=== PATIENT | female | born 1995 | race Two or more races ===

== ENCOUNTER 2019-08-11 21:05 | Emergency (ER) | payer BC, MEDICAID ==
--- NOTE | 2019-08-11 21:26 | EDM.PDOC ---
ED HPI GENERAL MEDICAL PROBLEM - General Chief Complaint: General Stated Complaint: FLU LIKE SYMPTOMS 8 MONTHS PREG Time Seen by Provider: 08/11/19 21:22 Source of Information: Reports: Patient History Limitations: Reports: No Limitations - History of Present Illness INITIAL COMMENTS - FREE TEXT/NARRATIVE: TRIAGE NOTE -- Pt states she started having flu like symptoms today with fever, chills, cough, and nausea. pt states she has also been having some bilaterally lower back pain. Pt is currently 8 months . pt took tylenol around 1500 As above. On my exam she denies nausea. She is taken nothing but Tylenol in an effort to moderate symptoms. There is a slight sore throat. No readily identified risk factors. 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 [No Known Home Meds] 08/11/19 [History] Social & Family History - Family History Family Medical History: Noncontributory - Tobacco Use Smoking Status *Q: Never Smoker Second Hand Smoke Exposure: No - Caffeine Use Caffeine Use: Reports: Tea - Recreational Drug Use Recreational Drug Use: No ED ROS GENERAL - Review of Systems Review Of Systems: Comprehensive ROS is negative, except as noted in HPI. ED EXAM, GENERAL - Physical Exam Exam: See Below Exam Limited By: No Limitations General Appearance: Alert, WD/WN Eye Exam: Bilateral Eye: EOMI, PERRL Ears: Normal External Exam Nose: Normal Inspection Throat/Mouth: Other (Mild posterior pharyngeal erythema no exudate no asymmetry) Head: Atraumatic, Normocephalic Neck: Normal Inspection, Supple, Non-Tender Respiratory/Chest: No Respiratory Distress, Lungs Clear, Normal Breath Sounds Cardiovascular: Tachycardia GI/Abdominal: Soft, Non-Tender, Other (Gravid) Back Exam: Normal Inspection Extremities: Normal Inspection Neurological: Alert, Oriented Psychiatric: Normal Affect Skin Exam: Warm, Dry Course - Vital Signs Last Recorded V/S: Last Vital Signs Temp 37.7 C 08/11/19 21:14 Pulse 120 H 08/11/19 21:14 Resp 18 08/11/19 21:14 BP 120/74 08/11/19 21:14 Pulse Ox 97 08/11/19 21:14 - Orders/Labs/Meds Orders: Active Orders 24 hr Category Date Time Status CULTURE STREP A CONFIRMATION [RM] Stat Lab 08/11/19 21:45 Results Rapid Strep w/culture conf [STREP SCRN A RAPID W CULT Lab 08/11/19 21:45 Results CONF] [RM] Stat Meds: Medications Discontinued Medications Generic Name Dose Route Start Last Admin Trade Name Everton PRN Reason Stop Dose Admin Sodium Chloride 1,000 mls @ 1,000 mls/hr 08/11/19 21:46 08/11/19 21:52 Normal Saline IV 08/11/19 22:45 1,000 mls/hr ONETIME ONE Administration - Re-Assessments/Exams Free Text/Narrative Re-Assessment/Exam: 08/11/19 23:09 Patient feels a bit better after IV fluids. She is negative for strep and flu. Discussed fully with her. See instructions. Departure - Departure Time of Disposition: 23:10 Disposition: Home, Self-Care 01 Condition: Good Clinical Impression: Flu-like symptoms, Third trimester - Discharge Information Referrals: Kandy Friedman MD [Primary Care Provider] - Forms: ED Department Discharge Additional Instructions: You have come to the ER tonight with flulike symptoms. You were negative for flu as well as strep. However there are other viruses that can cause the kind of discomfort you are experiencing. You received a liter of IV fluids. There was some improvement with this. I would suggest that you use stay on clear liquids for about 24 hours. Report this visit to your vest baster in the morning for any additional instructions and follow-up. Return to ER right away for any worsening of your condition, decreased urine output or any concerns at all. Sepsis Event Note - Evaluation Sepsis Screening Result: No Definite Risk - Focused Exam Vital Signs: Vital Signs Temp Pulse Resp BP Pulse Ox 08/11/19 21:14 37.7 C 120 H 18 120/74 97 Date Exam was Performed: 08/11/19 Time Exam was Performed: 23:09 - My Orders Last 24 Hours: My Active Orders 08/11/19 21:45 CULTURE STREP A CONFIRMATION [RM] Stat Rapid Strep w/culture conf [STREP SCRN A RAPID W CULT CONF] [RM] Stat - Assessment/Plan Last 24 Hours: My Active Orders 08/11/19 21:45 CULTURE STREP A CONFIRMATION [RM] Stat Rapid Strep w/culture conf [STREP SCRN A RAPID W CULT CONF] [RM] Stat
[2019-08-11] MEDS ORDERED: Sodium Chloride 0.9% 1,000 ML IV ONE (21:46)
== END 2019-08-11 23:21 | disposition home or self-care (01) ==
LOC: JD.ED 21:05
DX: O99.89 Other specified diseases and conditions complicating pregnancy, childbirth and the puerperium (principal); R50.9 Fever, unspecified; R05 Cough
CPT/HCPCS: 87081; 87430; 87804; 96360; 99283; J7030

== ENCOUNTER 2019-09-29 07:04 | Inpatient (IN) | payer OTHER, MEDICAID ==
[~2019-09-29 07:04] MED LIST: Bupivacaine 0.25% 10 ML SDV ONE
[2019-09-29] MEDS ORDERED: Nalbuphine 10 MG/ML Syringe IVPUSH PRN (07:16)
[2019-09-29] MEDS ORDERED: Sodium Chloride 0.9% 10 ML Syringe FLUSH PRN (07:16)
[2019-09-29] MEDS ORDERED: Ondansetron 4 MG/2 ML SDV IVPUSH PRN (07:16)
[2019-09-29] MEDS ORDERED: Misoprostol 25 MCG (1/4 of 100 MCG) Tab VAG PRN (07:16)
[2019-09-29] MEDS ORDERED: Misoprostol 25 MCG (1/4 of 100 MCG) Tab ONE (07:17)
--- NOTE | 2019-09-29 07:19 | PCM.LDHP ---
L&D History of Present Illness - General Date of Service: 09/29/19 Admit Problem/Dx: Patient Status Order with Admit Dx/Problem 09/29/19 07:16 Patient Status [ADT] Routine Admission Diagnosis/Problem Admission Diagnosis/Problem Abnormal quad screen Source of Information: Patient History Limitations: Reports: No Limitations - History of Present Illness Introduction:: Patient is a 24-year-old at 40-0/7 weeks gestation who presents for induction of labor for abnormal quad screen. This is shown an increased risk of neural tube defect. Subsequent MFM evaluation normal. Induction between 39- 40 weeks was recommended. Patient feeling well. No contractions recently. Getting good movement. 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 LMP (Approximate): Psychiatric History: Reports: Depression - Past Surgical History HEENT Surgical History: Reports: Myringotomy w Tube(s), Other (See Below) ( Stapedectomy) Social & Family History - Family History Family Medical History: Noncontributory - Tobacco Use Smoking Status *Q: Never Smoker - Caffeine Use Caffeine Use: Reports: Tea - Alcohol Use Alcohol Use History: No - Recreational Drug Use Recreational Drug Use: No H&P Review of Systems - Review of Systems: Review Of Systems: See Below General: Reports: No Symptoms Pulmonary: Reports: No Symptoms Cardiovascular: Reports: No Symptoms Gastrointestinal: Reports: No Symptoms Genitourinary: Reports: No Symptoms Musculoskeletal: Reports: No Symptoms Psychiatric: Reports: No Symptoms Neurological: Reports: No Symptoms L&D Exam - Exam Exam: See Below - OB Specific Contraction Intensity: Irritability Movement: Active Heart Tones: Present Heart Tones per Min: 130 Heart Rate (FHR) Variability: Moderate (6-25 bmp) Presentation: Vertex - Villanueva Score Villanueva Score Cervix Position: Midposition Villanueva Score Consistency: Soft Villanueva Score Effacement: 51-70% Villanueva Score Dilation: 1-2 cm Villanueva Score Infant's Station: -2 Villanueva Score Total: 7 - Exam General: Alert, Oriented, Cooperative Lungs: Clear to Auscultation, Normal Respiratory Effort Cardiovascular: Regular Rate, Regular Rhythm GI/Abdominal Exam: Soft, Non-Tender Genitourinary: Normal external exam Back Exam: Normal Inspection Extremities: Normal Inspection Skin: Warm, Dry, Intact - Patient Data Result Diagrams: 09/29/19 07:25 - Problem List (1) 40 weeks gestation of SNOMED Code(s): 04600245 ICD Code: Z3A.40 - 40 WEEKS GESTATION OF Status: Acute Current Visit: Yes (2) Abnormal quad screen SNOMED Code(s): 034014676, 216905484 ICD Code: O28.0 - ABNORMAL HEMATOLOG FINDING ON SCREENING OF MOTHER Status: Acute Current Visit: Yes Problem List Initiated/Reviewed/Updated: Yes Orders Last 24hrs: Active Orders 24 hr Category Date Time Status Patient Status [ADT] Routine ADT 09/29/19 07:16 Ordered Activity as Tolerated [RC] PFP Care 09/29/19 07:16 Ordered Communication Order [RC] ASDIRECTED Care 09/29/19 07:16 Ordered Communication Order [RC] ASDIRECTED Care 09/29/19 07:16 Ordered Communication Order [RC] ASDIRECTED Care 09/29/19 07:16 Ordered Heart Tones [RC] ASDIRECTED Care 09/29/19 07:17 Ordered Monitoring [RC] INTERMITTENT Care 09/29/19 07:16 Ordered Non Stress Test [RC] PER UNIT ROUTINE Care 09/29/19 07:16 Ordered Notify Provider [RC] ASDIRECTED Care 09/29/19 07:16 Ordered Notify Provider [RC] PRN Care 09/29/19 07:16 Ordered Peripheral IV Care [RC] . DIRECTED Care 09/29/19 07:17 Ordered Up ad Nicole [RC] ASDIRECTED Care 09/29/19 07:17 Ordered Vaginal Exam [RC] ASDIRECTED Care 09/29/19 07:16 Ordered Vital Signs [RC] ASDIRECTED Care 09/29/19 07:16 Ordered Regular Diet [DIET] Diet 09/29/19 Breakfast Ordered CBC W/O DIFF,HEMOGRAM [HEME] Routine Lab 09/29/19 07:16 Ordered RAPID PLASMA REAGIN,RPR [CHEM] Routine Lab 09/29/19 07:16 Ordered TYPE AND SCREEN [BBK] Routine Lab 09/29/19 07:16 Ordered Lactated Ringers [Ringers, Lactated] 1,000 ml Med 09/29/19 07:30 Ordered IV ASDIRECTED Nalbuphine [Nubain] Med 09/29/19 07:16 Ordered 10 mg IVPUSH Q2H PRN Ondansetron [Zofran] Med 09/29/19 07:16 Ordered 4 mg IVPUSH Q4H PRN Oxytocin/Lactated Ringers [Pitocin in LR 10 Units/1,000 Med 09/29/19 07:30 Ordered ML] 10 unit in 1,000 ml IV .CONTINUOUS Oxytocin/Lactated Ringers [Pitocin in LR 10 Units/1,000 Med 09/29/19 07:30 Ordered ML] 10 unit in 1,000 ml IV TITRATE Sodium Chloride 0.9% [Saline Flush] Med 09/29/19 07:16 Ordered 10 ml FLUSH ASDIRECTED PRN miSOPROStoL [Cytotec] Med 09/29/19 07:16 Ordered 25 mcg VAG Q4H PRN Electronic Heart Tones Ext w TOCO [WOMSER] Oth 09/29/19 07:16 Ordered Routine Electronic Heart Tones Internal [WOMSER] Per Unit Oth 09/29/19 07:16 Ordered Routine Medication Administration Instruction [OM.PC] Oth 09/29/19 07:30 Ordered ASDIRECTED Peripheral IV Insertion Adult [OM.PC] Routine Oth 09/29/19 07:16 Ordered Resuscitation Status Routine Resus Stat 09/29/19 07:16 Ordered Assessment/Plan Comment:: * Labs to be done * GBS negative, no need for antibiotics * Cytotec placed for IOL. Will transition to pitocin/Bryant bulb when able * Pain management per patient preference * Anticipate
[2019-09-29] MEDS ORDERED: Oxytocin/Lactated Ringers 10 UNIT/1,000 ML BAG IV SCH ×2 (07:30)
[2019-09-29] MEDS: Lactated Ringers 1,000 ML IV SCH ×4 (11:59→18:35)
[2019-09-29] MEDS ORDERED: Bupivacaine/fentaNYL/NS 100 ML Bag EPIDUR PRN (15:33)
[2019-09-29] MEDS ORDERED: diphenhydrAMINE 50 MG/ML SDV IVPUSH PRN (15:33)
[2019-09-29] MEDS ORDERED: ePHEDrine 50 MG/ML SDV IVPUSH PRN (15:33)
[2019-09-29] MEDS ORDERED: fentaNYL 100 MCG/2 ML SDV EPIDUR PRN (15:33)
--- NOTE | 2019-09-29 16:23 | PCM.PREANE ---
Preanesthetic Assessment - Anesthesia/Transfusion/Family Hx Anesthesia History: Prior Anesthesia Without Reaction Family History of Anesthesia Reaction: No Transfusion History: No Prior Transfusion(s) - Review of Systems General: No Symptoms Pulmonary: No Symptoms Cardiovascular: No Symptoms Gastrointestinal: No Symptoms Neurological: No Symptoms, Other (Hard of hearing in right ear. History of 2 ear surgeries on the right. ) Other: Reports: Depression, Anxiety - Physical Assessment Vital Signs: Last Vital Signs Temp Pulse 73 09/29/19 07:16 Resp 18 09/29/19 07:16 BP 115/70 09/29/19 07:16 Pulse Ox 98 09/29/19 07:16 Height: 1.63 m Weight: 69.4 kg ASA Class: 2 Mental Status: Alert & Oriented x3 Dentition: Reports: Normal Dentition Thyro-Mental Finger Breadths: 3 Mouth Opening Finger Breadths: 3 ROM/Head Extension: Full Lungs: Clear to Auscultation, Normal Respiratory Effort Cardiovascular: Regular Rate, Regular Rhythm - Lab Values: Laboratory Last Values WBC 8.35 K/mm3 (3.98-10.04) 09/29/19 07:25 RBC 3.80 M/mm3 (3.98-5.22) L 09/29/19 07:25 Hgb 10.3 gm/dl (11.2-15.7) L D 09/29/19 07:25 Hct 32.5 % (34.1-44.9) L 09/29/19 07:25 MCV 85.5 fl (79.4-94.8) 09/29/19 07:25 MCH 27.1 pg (25.6-32.2) 09/29/19 07:25 MCHC 31.7 g/dl (32.2-35.5) L 09/29/19 07:25 RDW Std Deviation 45.2 fL (36.4-46.3) 09/29/19 07:25 Plt Count 305 K/mm3 (182-369) 09/29/19 07:25 MPV 10.7 fl (9.4-12.3) 09/29/19 07:25 Blood Type AB POSITIVE 09/29/19 07:25 Gel Antibody Screen Negative 09/29/19 07:25 - Allergies Allergies/Adverse Reactions: Allergies Allergy/AdvReac Type Severity Reaction Status Date / Time No Known Allergies Allergy Verified 09/29/19 07:25 - Acknowledgements Anesthesia Type Planned: Epidural Pt an Appropriate Candidate for the Planned Anesthesia: Yes Alternatives and Risks of Anesthesia Discussed w Pt/Guardian: Yes Pt/Guardian Understands and Agrees with Anesthesia Plan: Yes PreAnesthesia Questionnaire HEENT History: Reports: Hard of Hearing, Other (See Below) Other 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: Psychiatric History: Reports: Depression - Past Surgical History HEENT Surgical History: Reports: Myringotomy w Tube(s), Other (See Below) ( Stapedectomy) - SUBSTANCE USE Smoking Status *Q: Never Smoker Tobacco Use Within Last Twelve Months: No Recreational Drug Use History: No - HOME MEDS Home Medications: Home Meds Mv-Mn/Iron/FA/Herbal/Digestive [ One Tablet] 1 tab PO DAILY 09/09/19 [ History] - CURRENT (IN HOUSE) MEDS Current Meds: Current Medications Diphenhydramine HCl (Benadryl) 25 mg IVPUSH Q6H PRN PRN Reason: pruritis Ephedrine Sulfate (Ephedrine Sulfate) 5 mg IVPUSH ASDIRECTED PRN PRN Reason: Hypotension Fentanyl (Sublimaze) 100 mcg EPIDUR Q3H PRN PRN Reason: Pain Last Admin: 09/29/19 15:45 Dose: 100 mcg Fentanyl/Bupivacaine HCl (Fentanyl/Bupivacaine/Ns 2 Mcg-0.125% 100 Ml) 100 ml EPIDUR ASDIRECTED PRN PRN Reason: Pain Last Admin: 09/29/19 15:45 Dose: 100 ml Lactated Ringer's (Ringers, Lactated) 1,000 mls @ 40 mls/hr IV ASDIRECTED KISHORE Last Admin: 09/29/19 16:09 Dose: 40 mls/hr Oxytocin/Lactated Ringer's (Pitocin In Lr 10 Units/1,000 Ml) 10 unit in 1,000 mls @ 12 mls/hr IV TITRATE KISHORE; Protocol Last Titration: 09/29/19 14:00 Dose: 6 munits/min, 36 mls/hr Oxytocin/Lactated Ringer's (Pitocin In Lr 10 Units/1,000 Ml) 10 unit in 1,000 mls @ 500 mls/hr IV .CONTINUOUS KISOHRE Misoprostol (Cytotec) 25 mcg VAG Q4H PRN PRN Reason: cervical ripening Last Admin: 09/29/19 07:25 Dose: 25 mcg Ondansetron HCl (Zofran) 4 mg IVPUSH Q4H PRN PRN Reason: Nausea/Vomiting Sodium Chloride (Saline Flush) 10 ml FLUSH ASDIRECTED PRN PRN Reason: Keep Vein Open Discontinued Medications Misoprostol (Cytotec) Confirm Administered Dose 25 mcg .ROUTE .[facility] ONE Stop: 09/29/19 07:18 Last Admin: 09/29/19 07:26 Dose: Not Given Nalbuphine HCl (Nubain) 10 mg IVPUSH Q2H PRN PRN Reason: Pain
--- NOTE | 2019-09-29 21:29 | PCM.DEL ---
L & D Note - General Info Date of Service: 09/29/19 - Delivery Note Labor: Induced by Oxytocin Cervical Ripening Method: Balloon Device, Misoprostil Delivery Outcome: Livebirth Delivery Method: Spontaneous Vaginal Delivery-Single Infant Delivery Mode: Spontaneous Presentation: Left Occiput Anterior (JUDY) Nuchal Cord: Present (x2), Reduced Anesthesia Type: Epidural Amniotic Fluid Description: Clear Episiotomy Type: None Laceration: None Placenta: Intact, Spontaneous Cord: 3 Vessels Estimated Blood Loss: 200 Resuscitation Needed: Yes : Bulb Syringe, Stimulated, Warmed, Kennan Used, Warmer Used Delivery Comments (Free Text/Narrative):: Patient found to be complete and began pushing. With maternal pushing effort head delivered from JUDY presentation. Double nuchal cord present and reduced. With gentle downward traction shoulders and body delivered. placed on maternal abdomen. Cord clamped and cut. True knot also noted. Cord blood obtained. Placenta allowed time to separate and expelled intact. Inspection fo the perineum showed no lacerations - General Info Date of Service: 09/29/19 - Patient Data Vitals - Most Recent: Last Vital Signs Temp Pulse 73 09/29/19 07:16 Resp 18 09/29/19 07:16 BP 115/70 09/29/19 07:16 Pulse Ox 98 09/29/19 07:16 Weight - Most Recent: 69.4 kg - Problem List & Annotations (1) 40 weeks gestation of SNOMED Code(s): 12910063 Code(s): Z3A.40 - 40 WEEKS GESTATION OF Status: Acute Current Visit: Yes (2) Abnormal quad screen SNOMED Code(s): 636531581, 950936217 Code(s): O28.0 - ABNORMAL HEMATOLOG FINDING ON SCREENING OF MOTHER Status: Acute Current Visit: Yes (3) Vaginal delivery SNOMED Code(s): 883370794 Code(s): O80 - ENCOUNTER FOR FULL-TERM UNCOMPLICATED DELIVERY Status: Acute Current Visit: Yes - Problem List Review Problem List Initiated/Reviewed/Updated: Yes - My Orders Last 24 Hours: My Active Orders 09/29/19 07:16 Patient Status [ADT] Routine Activity as Tolerated [RC] PFP Communication Order [RC] ASDIRECTED Communication Order [RC] ASDIRECTED Communication Order [RC] ASDIRECTED Monitoring [RC] INTERMITTENT Non Stress Test [RC] PER UNIT ROUTINE Notify Provider [RC] ASDIRECTED Notify Provider [RC] PRN Vaginal Exam [RC] ASDIRECTED Vital Signs [RC] ASDIRECTED Ondansetron [Zofran] 4 mg IVPUSH Q4H PRN Sodium Chloride 0.9% [Saline Flush] 10 ml FLUSH ASDIRECTED PRN miSOPROStoL [Cytotec] 25 mcg VAG Q4H PRN Electronic Heart Tones Ext w TOCO [WOMSER] Routine Electronic Heart Tones Internal [WOMSER] Per Unit Routine Peripheral IV Insertion Adult [OM.PC] Routine Resuscitation Status Routine 09/29/19 07:17 Heart Tones [RC] ASDIRECTED Peripheral IV Care [RC] . DIRECTED Up ad Nicole [RC] ASDIRECTED 09/29/19 07:25 RAPID PLASMA REAGIN,RPR [CHEM] Routine 09/29/19 07:30 Lactated Ringers [Ringers, Lactated] 1,000 ml IV ASDIRECTED Oxytocin/Lactated Ringers [Pitocin in LR 10 Units/1,000 ML] 10 unit in 1,000 ml IV .CONTINUOUS Oxytocin/Lactated Ringers [Pitocin in LR 10 Units/1,000 ML] 10 unit in 1,000 ml IV TITRATE Medication Administration Instruction [OM.PC] ASDIRECTED 09/29/19 08:02 PATIENT RETYPE [BBK] Routine 09/29/19 Breakfast Regular Diet [DIET] - Assessment Assessment:: PPD#0 - Plan Plan:: * Routine cares * breast feeding * Discharge home in 2 days
[2019-09-29] MEDS ORDERED: Benzocaine/Menthol 20%-0.5% Spray 56 GM Canister TOP PRN (21:55)
[2019-09-29] MEDS ORDERED: Witch Hazel Medicated Pads 40/Jar TOP PRN (21:55)
[2019-09-29] MEDS ORDERED: Acetaminophen 325 MG Tab PO PRN (21:55)
[2019-09-29] MEDS: Ibuprofen 600 MG Tab PO PRN (23:17)
--- NOTE | 2019-09-30 06:20 | PCM.PNPP ---
- General Info Date of Service: 09/30/19 Functional Status: Reports: Pain Controlled, Tolerating Diet, Ambulating, Urinating - Review of Systems General: Reports: No Symptoms Pulmonary: Reports: No Symptoms Cardiovascular: Reports: No Symptoms Gastrointestinal: Reports: No Symptoms Genitourinary: Reports: No Symptoms Musculoskeletal: Reports: No Symptoms Neurological: Reports: No Symptoms - Patient Data Vital Signs - Most Recent: Last Vital Signs Temp Pulse 73 09/29/19 07:16 Resp 18 09/29/19 07:16 BP 115/70 09/29/19 07:16 Pulse Ox 98 09/29/19 07:16 Weight - Most Recent: 69.4 kg I&O - Last 24 Hours: Intake & Output 09/29/19 09/29/19 09/30/19 14:59 22:59 06:59 Intake Total 3180 1100 Balance 3180 1100 Lab Results - Last 24 Hours: Laboratory Results - last 24 hr 09/29/19 09/29/19 09/29/19 Range/Units 07:25 07:25 07:25 WBC 8.35 (3.98-10.04) K/mm3 RBC 3.80 L (3.98-5.22) M/mm3 Hgb 10.3 L D (11.2-15.7) gm/dl Hct 32.5 L (34.1-44.9) % MCV 85.5 (79.4-94.8) fl MCH 27.1 (25.6-32.2) pg MCHC 31.7 L (32.2-35.5) g/dl RDW Std Deviation 45.2 (36.4-46.3) fL Plt Count 305 (182-369) K/mm3 MPV 10.7 (9.4-12.3) fl RPR Non-reactive (NONREACTIVE) Blood Type AB POSITIVE Gel Antibody Screen Negative Med Orders - Current: Current Medications Acetaminophen (Tylenol) 650 mg PO Q4H PRN PRN Reason: mild pain or fever Benzocaine/Menthol (Dermoplast Pain Relief [place]) 0 gm TOP ASDIRECTED PRN PRN Reason: Perineal Comfort Measure Last Admin: 09/29/19 23:16 Dose: 1 canister Ibuprofen (Motrin) 600 mg PO Q6H PRN PRN Reason: Mild pain or fever Last Admin: 09/29/19 23:17 Dose: 600 mg Witch Janie (Tucks) 1 pad TOP ASDIRECTED PRN PRN Reason: Perineal Comfort Measure Last Admin: 09/29/19 23:16 Dose: 1 tub Discontinued Medications Diphenhydramine HCl (Benadryl) 25 mg IVPUSH Q6H PRN PRN Reason: pruritis Ephedrine Sulfate (Ephedrine Sulfate) 5 mg IVPUSH ASDIRECTED PRN PRN Reason: Hypotension Fentanyl (Sublimaze) 100 mcg EPIDUR Q3H PRN PRN Reason: Pain Last Admin: 09/29/19 15:45 Dose: 100 mcg Fentanyl/Bupivacaine HCl (Fentanyl/Bupivacaine/Ns 2 Mcg-0.125% 100 Ml) 100 ml EPIDUR ASDIRECTED PRN PRN Reason: Pain Last Admin: 09/29/19 15:45 Dose: 100 ml Lactated Ringer's (Ringers, Lactated) 1,000 mls @ 40 mls/hr IV ASDIRECTED KISHORE Last Admin: 09/29/19 18:35 Dose: 40 mls/hr Oxytocin/Lactated Ringer's (Pitocin In Lr 10 Units/1,000 Ml) 10 unit in 1,000 mls @ 12 mls/hr IV TITRATE KISHORE; Protocol Last Titration: 09/29/19 18:49 Dose: 2 munits/min, 12 mls/hr Oxytocin/Lactated Ringer's (Pitocin In Lr 10 Units/1,000 Ml) 10 unit in 1,000 mls @ 500 mls/hr IV .CONTINUOUS KISHORE Misoprostol (Cytotec) 25 mcg VAG Q4H PRN PRN Reason: cervical ripening Last Admin: 09/29/19 07:25 Dose: 25 mcg Misoprostol (Cytotec) Confirm Administered Dose 25 mcg .ROUTE .[facility] ONE Stop: 09/29/19 07:18 Last Admin: 09/29/19 07:26 Dose: Not Given Nalbuphine HCl (Nubain) 10 mg IVPUSH Q2H PRN PRN Reason: Pain Ondansetron HCl (Zofran) 4 mg IVPUSH Q4H PRN PRN Reason: Nausea/Vomiting Sodium Chloride (Saline Flush) 10 ml FLUSH ASDIRECTED PRN PRN Reason: Keep Vein Open - Infant Interaction Infant Disposition, : [place] in Room with Family Interaction: Holding Feeding: Attempted ; Nursed Fair/Poor Support Person: Significant Other - Recovery Exam Fundal Tone: Firm Fundal Level: 1 Fingerbreadths Below Umbilicus Fundal Placement: Midline Lochia Amount: Small Lochia Color: Rubra/Red Perineum Description: Intact, Minimal Bruising/Swelling Bladder Status: Voiding Urinary Elimination: Voided - Exam General: Alert, Oriented, Cooperative GI/Abdominal Exam: Soft, Non-Tender Extremities: Normal Inspection Skin: Warm, Dry, Intact - Problem List & Annotations (1) 40 weeks gestation of SNOMED Code(s): 50797604 Code(s): Z3A.40 - 40 WEEKS GESTATION OF Status: Acute Current Visit: Yes (2) Abnormal quad screen SNOMED Code(s): 942106825, 152937349 Code(s): O28.0 - ABNORMAL HEMATOLOG FINDING ON SCREENING OF MOTHER Status: Acute Current Visit: Yes (3) Vaginal delivery SNOMED Code(s): 512541893 Code(s): O80 - ENCOUNTER FOR FULL-TERM UNCOMPLICATED DELIVERY Status: Acute Current Visit: Yes - Problem List Review Problem List Initiated/Reviewed/Updated: Yes - My Orders Last 24 Hours: My Active Orders 09/29/19 07:16 Monitoring [RC] INTERMITTENT Vaginal Exam [RC] ASDIRECTED Resuscitation Status Routine 09/29/19 07:17 Heart Tones [RC] ASDIRECTED Peripheral IV Care [RC] . DIRECTED 09/29/19 21:55 Activity as Tolerated [RC] PER UNIT ROUTINE Vital Signs [RC] 03,09,15,21 Acetaminophen [Tylenol] 650 mg PO Q4H PRN Benzocaine/Menthol [Dermoplast Pain Relief [place]] See Dose Instructions TOP ASDIRECTED PRN Ibuprofen [Motrin] 600 mg PO Q6H PRN witch Janie [Tucks] 1 pad TOP ASDIRECTED PRN Assess Lochia [WOMSER] Per Unit Routine Assess Uterine Involution [WOMSER] Per Unit Routine Breast Pump [WOMSER] Per Unit Routine Heat Therapy [OM.PC] PRN Ice Therapy [OM.PC] Per Unit Routine Perineal Care [OM.PC] Per Unit Routine Peripheral IV Discontinue [OM.PC] Routine Sitz Bath [OM.PC] Per Unit Routine 09/29/19 Dinner Regular Diet [DIET] 09/30/19 21:55 Heat Therapy [OM.PC] PRN - Assessment Assessment:: PPD#1 - Plan Plan:: * Routine cares * Breast feeding * Discharge home tomorrow
--- NOTE | 2019-09-30 08:20 | PCM48HPAN ---
Post Anesthesia Note - EVALUATION WITHIN 48HRS OF ANESTHETIC Vital Signs in Normal Range: Yes Patient Participated in Evaluation: Yes Respiratory Function Stable: Yes Airway Patent: Yes Cardiovascular Function Stable: Yes Hydration Status Stable: Yes Pain Control Satisfactory: Yes Nausea and Vomiting Control Satisfactory: Yes Mental Status Recovered: Yes Vital Signs: Last Vital Signs Temp 36.7 C 09/30/19 03:02 Pulse 85 09/30/19 03:02 Resp 14 09/30/19 03:02 BP 99/49 L 09/30/19 03:02 Pulse Ox 96 09/30/19 03:02 - COMMENTS/OBSERVATIONS Free Text/Narrative:: no anesthesia complications noted
[2019-09-30] MEDS: Ibuprofen 600 MG Tab PO PRN (12:33)
--- NOTE | 2019-10-01 08:10 | PCM.PNPP ---
- General Info Date of Service: 10/01/19 Functional Status: Reports: Pain Controlled, Tolerating Diet, Ambulating, Urinating - Review of Systems General: Reports: No Symptoms Pulmonary: Reports: No Symptoms Cardiovascular: Reports: No Symptoms Gastrointestinal: Reports: No Symptoms Genitourinary: Reports: No Symptoms Musculoskeletal: Reports: No Symptoms - Patient Data Vital Signs - Most Recent: Last Vital Signs Temp 36.6 C 10/01/19 02:33 Pulse 73 10/01/19 02:33 Resp 16 10/01/19 02:33 BP 116/90 10/01/19 02:33 Pulse Ox 95 10/01/19 02:33 Weight - Most Recent: 69.4 kg I&O - Last 24 Hours: Intake & Output 09/30/19 10/01/19 10/01/19 22:59 06:59 14:59 Intake Total 320 Balance 320 Med Orders - Current: Current Medications Acetaminophen (Tylenol) 650 mg PO Q4H PRN PRN Reason: mild pain or fever Benzocaine/Menthol (Dermoplast Pain Relief [place]) 0 gm TOP ASDIRECTED PRN PRN Reason: Perineal Comfort Measure Last Admin: 09/29/19 23:16 Dose: 1 canister Ibuprofen (Motrin) 600 mg PO Q6H PRN PRN Reason: Mild pain or fever Last Admin: 09/30/19 12:33 Dose: 600 mg Witch Krista (Tucks) 1 pad TOP ASDIRECTED PRN PRN Reason: Perineal Comfort Measure Last Admin: 09/29/19 23:16 Dose: 1 tub Discontinued Medications Bupivacaine HCl (Sensorcaine-Mpf 0.25%) 10 ml .ROUTE .STK-MED ONE Stop: 09/29/19 00:01 Diphenhydramine HCl (Benadryl) 25 mg IVPUSH Q6H PRN PRN Reason: pruritis Ephedrine Sulfate (Ephedrine Sulfate) 5 mg IVPUSH ASDIRECTED PRN PRN Reason: Hypotension Fentanyl (Sublimaze) 100 mcg EPIDUR Q3H PRN PRN Reason: Pain Last Admin: 09/29/19 15:45 Dose: 100 mcg Fentanyl/Bupivacaine HCl (Fentanyl/Bupivacaine/Ns 2 Mcg-0.125% 100 Ml) 100 ml EPIDUR ASDIRECTED PRN PRN Reason: Pain Last Admin: 09/29/19 15:45 Dose: 100 ml Lactated Ringer's (Ringers, Lactated) 1,000 mls @ 40 mls/hr IV ASDIRECTED KISHORE Last Admin: 09/29/19 18:35 Dose: 40 mls/hr Oxytocin/Lactated Ringer's (Pitocin In Lr 10 Units/1,000 Ml) 10 unit in 1,000 mls @ 12 mls/hr IV TITRATE KISHORE; Protocol Last Titration: 09/29/19 18:49 Dose: 2 munits/min, 12 mls/hr Oxytocin/Lactated Ringer's (Pitocin In Lr 10 Units/1,000 Ml) 10 unit in 1,000 mls @ 500 mls/hr IV .CONTINUOUS KISHORE Misoprostol (Cytotec) 25 mcg VAG Q4H PRN PRN Reason: cervical ripening Last Admin: 09/29/19 07:25 Dose: 25 mcg Misoprostol (Cytotec) Confirm Administered Dose [address] .[facility] ONE Stop: 09/29/19 07:18 Last Admin: 09/29/19 07:26 Dose: Not Given Nalbuphine HCl (Nubain) 10 mg IVPUSH Q2H PRN PRN Reason: Pain Ondansetron HCl (Zofran) 4 mg IVPUSH Q4H PRN PRN Reason: Nausea/Vomiting Sodium Chloride (Saline Flush) 10 ml FLUSH ASDIRECTED PRN PRN Reason: Keep Vein Open - Infant Interaction Infant Disposition, : [place] in Room with Family Interaction: Holding Feeding: Attempted ; Nursed Fair/Poor, Continues to Breastfeed Support Person: Significant Other - Recovery Exam Fundal Tone: Firm Fundal Level: 2 Fingerbreadths Below Umbilicus Fundal Placement: Midline Lochia Amount: Small Lochia Color: Rubra/Red Perineum Description: Intact, Minimal Bruising/Swelling Bladder Status: Voiding Urinary Elimination: Voided - Exam General: Alert, Oriented, Cooperative GI/Abdominal Exam: Soft, Non-Tender Extremities: Normal Inspection Skin: Warm, Dry, Intact - Problem List & Annotations (1) 40 weeks gestation of SNOMED Code(s): 64218268 Code(s): Z3A.40 - 40 WEEKS GESTATION OF Status: Acute Current Visit: Yes (2) Abnormal quad screen SNOMED Code(s): 954734732, 591602580 Code(s): O28.0 - ABNORMAL HEMATOLOG FINDING ON SCREENING OF MOTHER Status: Acute Current Visit: Yes (3) Vaginal delivery SNOMED Code(s): 932655311 Code(s): O80 - ENCOUNTER FOR FULL-TERM UNCOMPLICATED DELIVERY Status: Acute Current Visit: Yes - Problem List Review Problem List Initiated/Reviewed/Updated: Yes - My Orders Last 24 Hours: My Active Orders 09/30/19 21:55 Heat Therapy [OM.PC] PRN - Assessment Assessment:: PPD#2 - Plan Plan:: * Routine cares * Breast feeding * Discharge home today
--- NOTE | 2019-10-01 08:16 | PCM.DCSUM1 ---
Discharge Summary - Discharge Data Discharge Date: 10/01/19 Discharge Disposition: Home, Self-Care 01 Condition: Good - Referral to Home Health Primary Care Physician: Kandy Friedman MD - Discharge Diagnosis/Problem(s) (1) 40 weeks gestation of SNOMED Code(s): 46077829 ICD Code: Z3A.40 - 40 WEEKS GESTATION OF Status: Acute Current Visit: Yes (2) Abnormal quad screen SNOMED Code(s): 079465900, 307124759 ICD Code: O28.0 - ABNORMAL HEMATOLOG FINDING ON SCREENING OF MOTHER Status: Acute Current Visit: Yes (3) Vaginal delivery SNOMED Code(s): 869549844 ICD Code: O80 - ENCOUNTER FOR FULL-TERM UNCOMPLICATED DELIVERY Status: Acute Current Visit: Yes - Patient Summary/Data Complications: None Consults: None Recommended Follow-up Testing/Procedures: Follow up in 3 weeks for check Hospital Course: 24 y/o at at 40 0/7 wks who presents for IOL for previous findings of abnormal quad screen. IOL done with Cytotec, paulino bulb, and AROM/pitocin. She progressed well and underwent an uncomplicated . - Patient Instructions Diet: Regular Diet as Tolerated Activity: As Tolerated Activity, Other: Pelvic rest for 6 weeks Driving: May Drive Today Showering/Bathing: May Shower Showering/Bathing, Other: May bathe Notify Provider of: Fever, Increased Pain, Swelling and Redness, Drainage, Nausea and/or Vomiting - Discharge Plan *PRESCRIPTION DRUG MONITORING PROGRAM REVIEWED*: No *COPY OF PRESCRIPTION DRUG MONITORING REPORT IN PATIENT EMILY: No Home Medications: Home Meds Mv-Mn/Iron/FA/Herbal/Digestive [ One Tablet] 1 tab PO DAILY 09/09/19 [ History] Acetaminophen [Tylenol] 650 mg PO Q4H PRN tablet 10/01/19 [Rx] Ibuprofen [Motrin] 600 mg PO Q6H PRN tablet 10/01/19 [Rx] Referrals: Kandy Friedman MD [Primary Care Provider] - (3 weeks for check) - Discharge Summary/Plan Comment DC Time >30 min.: No - Patient Data Vitals - Most Recent: Last Vital Signs Temp 36.6 C 10/01/19 02:33 Pulse 73 10/01/19 02:33 Resp 16 10/01/19 02:33 BP 116/90 10/01/19 02:33 Pulse Ox 95 10/01/19 02:33 Weight - Most Recent: 69.4 kg I&O - Last 24 hours: Intake & Output 09/30/19 10/01/19 10/01/19 22:59 06:59 14:59 Intake Total 320 Balance 320 Med Orders - Current: Current Medications Acetaminophen (Tylenol) 650 mg PO Q4H PRN PRN Reason: mild pain or fever Benzocaine/Menthol (Dermoplast Pain Relief [place]) 0 gm TOP ASDIRECTED PRN PRN Reason: Perineal Comfort Measure Last Admin: 09/29/19 23:16 Dose: 1 canister Ibuprofen (Motrin) 600 mg PO Q6H PRN PRN Reason: Mild pain or fever Last Admin: 09/30/19 12:33 Dose: 600 mg Witch Krista (Tucks) 1 pad TOP ASDIRECTED PRN PRN Reason: Perineal Comfort Measure Last Admin: 09/29/19 23:16 Dose: 1 tub Discontinued Medications Bupivacaine HCl (Sensorcaine-Mpf 0.25%) 10 ml .ROUTE .STK-MED ONE Stop: 09/29/19 00:01 Diphenhydramine HCl (Benadryl) 25 mg IVPUSH Q6H PRN PRN Reason: pruritis Ephedrine Sulfate (Ephedrine Sulfate) 5 mg IVPUSH ASDIRECTED PRN PRN Reason: Hypotension Fentanyl (Sublimaze) 100 mcg EPIDUR Q3H PRN PRN Reason: Pain Last Admin: 09/29/19 15:45 Dose: 100 mcg Fentanyl/Bupivacaine HCl (Fentanyl/Bupivacaine/Ns 2 Mcg-0.125% 100 Ml) 100 ml EPIDUR ASDIRECTED PRN PRN Reason: Pain Last Admin: 09/29/19 15:45 Dose: 100 ml Lactated Ringer's (Ringers, Lactated) 1,000 mls @ 40 mls/hr IV ASDIRECTED KISHORE Last Admin: 09/29/19 18:35 Dose: 40 mls/hr Oxytocin/Lactated Ringer's (Pitocin In Lr 10 Units/1,000 Ml) 10 unit in 1,000 mls @ 12 mls/hr IV TITRATE KISHORE; Protocol Last Titration: 09/29/19 18:49 Dose: 2 munits/min, 12 mls/hr Oxytocin/Lactated Ringer's (Pitocin In Lr 10 Units/1,000 Ml) 10 unit in 1,000 mls @ 500 mls/hr IV .CONTINUOUS KISHORE Misoprostol (Cytotec) 25 mcg VAG Q4H PRN PRN Reason: cervical ripening Last Admin: 09/29/19 07:25 Dose: 25 mcg Misoprostol (Cytotec) Confirm Administered Dose 25 mcg .ROUTE .[facility] ONE Stop: 09/29/19 07:18 Last Admin: 09/29/19 07:26 Dose: Not Given Nalbuphine HCl (Nubain) 10 mg IVPUSH Q2H PRN PRN Reason: Pain Ondansetron HCl (Zofran) 4 mg IVPUSH Q4H PRN PRN Reason: Nausea/Vomiting Sodium Chloride (Saline Flush) 10 ml FLUSH ASDIRECTED PRN PRN Reason: Keep Vein Open
== END 2019-10-01 11:05 | disposition home or self-care (01) | DRG 807 ==
LOC: JD.OB 07:04 → OBSVTOIN 21:16 → JD.OB 21:16
PROVIDERS: ADMIT Obstetrics & Gynecology; ATTEND Obstetrics & Gynecology
PROC: 10E0XZZ Delivery of Products of Conception, External Approach (ICD-10-PCS; principal; 2019-09-29)
PROC: 3E0P7VZ Introduction of Hormone into Female Reproductive, Via Natural or Artificial Opening (ICD-10-PCS; 2019-09-29)
PROC: 3E033VJ Introduction of Other Hormone into Peripheral Vein, Percutaneous Approach (ICD-10-PCS; 2019-09-29)
PROC: 0U7C7ZZ Dilation of Cervix, Via Natural or Artificial Opening (ICD-10-PCS; 2019-09-29)
PROC: 3E0R3BZ Introduction of Anesthetic Agent into Spinal Canal, Percutaneous Approach (ICD-10-PCS; 2019-09-29)
PROC: 10907ZC Drainage of Amniotic Fluid, Therapeutic from Products of Conception, Via Natural or Artificial Opening (ICD-10-PCS; 2019-09-29)
DX: O48.0 Post-term pregnancy (principal); Z37.0 Single live birth; O28.0 Abnormal hematological finding on antenatal screening of mother; O69.81X0 Labor and delivery complicated by cord around neck, without compression, not applicable or unspecified; Z3A.40 40 weeks gestation of pregnancy; Z79.899 Other long term (current) drug therapy
CPT/HCPCS: 01967; 36415; 51702; 59025; 59409; 85027; 86592; 86850; 86900; 86901; A9270-GY; J2590; J3010; J3490; J7120